=== PATIENT | male | born 1960 | race Caucasian/White ===

== ENCOUNTER 2025-03-22 09:28 | Emergency (ER) | payer OTHER, SELFPAY ==
[2025-03-22 09:39] VITALS: BP 154/77; PULSE 77; RESP 16; TEMP 36.5; O2SAT 100
--- NOTE | 2025-03-22 10:03 | ED.EXTPRO ---
HPI - Extremity Problem General Chief complaint: Extremity Problem,Nontraumatic Stated complaint: pain in left calf/left foot gets numb Time Seen by Provider: 03/22/25 09:44 Source: patient and RN notes reviewed Mode of arrival: ambulatory Limitations: no limitations History of Present Illness HPI Narrative: Patient presents today with an almost 2 week history pain to her left calf and tingling to the dorsum of the foot. Denies injury or trauma. Currently rates his pain 3/10 and has tried no OTC treatment prior to arrival. 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 States a few weeks ago he did have some left-sided low back pain with a bit of radiation down the posterior left upper leg, but states this has since resolved. He denies swelling, redness of the leg. Denies any additional symptoms. He does not currently have a PCP in states he has not seen a primary care provider in many years. Related Data Allergies Allergy/AdvReac Type Severity Reaction Status Date / Time No Known Allergies Allergy Verified 03/22/25 10:01 [facility] Comments At time of signature, I have reviewed and agree with nursing past medical, surgical, social and family history unless otherwise noted. Please see nursing chart for further information. There is no relevant family history pertinent to the presenting complaint Exam Narrative: GENERAL: Well-appearing, well-nourished, and in no acute distress. HEAD: Normocephalic, atraumatic. EYES: EOMI. No redness or drainage. Conjunctivae normal. ENT: Mucous membranes pink and moist. NECK: Normal AROM. CHEST: No respiratory distress. MUSCULOSKELETAL: No bony tenderness of the spine. No tenderness to the left lower lumbar paraspinal muscles extending to the left buttock. EXTREMITIES: Left leg: Patient localizes his calf pain to the lateral calf. The lower leg and foot are not tender to palpation. There is no swelling, edema, erythema, ecchymosis, or other abnormalities the lower leg or foot. Negative Homans. No color change of the leg or foot. Distal sensation intact in all 5 toes. Capillary refill normal. Pedal pulse normal. Full range of motion of the ankle and knee. SKIN: Warm, dry, no rash. Capillary refill normal. Normal skin turgor. NEURO: No focal deficits. Alert and oriented x3. Gait steady. PSYCH: Normal affect. No signs of depression or anxiety. Course Course Level of Care: Express Care Visit Vital Signs Vital signs: Vital Signs Temperature 97.7 F 03/22/25 09:39 Pulse Rate 77 03/22/25 09:39 Respiratory Rate 16 03/22/25 09:39 Blood Pressure 154/77 H 03/22/25 09:39 Pulse Oximetry 100 03/22/25 09:39 Temperature 97.7 F 03/22/25 09:39 Pulse Rate 77 03/22/25 09:39 Respiratory Rate 16 03/22/25 09:39 Blood Pressure 154/77 H 03/22/25 09:39 Pulse Oximetry 100 03/22/25 09:39 Reviewed MDM - Extremity (Nontraumatic) MDM Narrative Medical decision making narrative: 65-year-old male patient presents today with pain to the lateral left calf and dorsum of the left foot x2 weeks. No injury or trauma. Also reports some tingling to the dorsum of the foot. Proximally at time of onset patient did have some acute left low back pain that has since resolved. Patient's exam is normal. Localizes his calf pain to the lateral calf, but pain does not increase with palpation to the area. Negative Homans. No abnormalities of the leg or foot. Pedal pulse normal. At this time, etiology lumbar radiculopathy verses muscle strain. Patient has no physical exam findings that would indicate need for ER transfer at this time. Will prescribe meloxicam and prednisone to help with pain and inflammation. Recommend PCP follow-up next week if symptoms are not improving. Patient agrees with plan. Vital signs stable. Anticipatory guidance and ED precautions given. Differential Diagnosis Differential diagnosis: Likely cellulitis, superficial thrombophlebitis, deep vein thrombosis of lower extremity and other (Gout, lumbar radiculopathy) Critical Care Time Critical Care Time Critical Care Time: No Discharge Plan Discharge Clinical Impression: Left leg pain Patient Disposition: Home Condition: Stable Additional Instructions: Please take the meloxicam and prednisone as directed. Please follow up with a PCP in 1 week if symptoms do not improve. As discussed, if symptoms worsen to include swelling, redness, or tenderness of your leg or foot, please go to the ER for further evaluation. Your blood pressure was elevated above 120/80 today at Urgent Care. This puts you above the threshold for follow up. Please schedule a followup visit with your personal physician as soon as possible, for further evaluation and treatment. Even blood pressure exceeding 120/80 may indicate pre-hypertension. Patient Language: Mongolian Prescriptions: New methylprednisolone [Medrol ([place])] 4 mg tablets,dose pack See Rx Instructions .ROUTE .COMPLEX Qty: 21 0RF Rx Instructions: orally per package directions meloxicam 15 mg tablet 15 mg PO DAILY Qty: 10 0RF Follow-up/Referrals: PHYSICIAN,[facility] [Primary Care Provider, Internal Medicine] Time of Disposition: 10:02
== END 2025-03-22 10:04 | disposition home or self-care (01) ==
PROVIDERS: Emergency Provider Nurse Practitioner
DX: M79.662 Pain in left lower leg (principal)
CPT/HCPCS: 99203; G0463